=== PATIENT | female | born 1985 | race Caucasian/White ===

== ENCOUNTER 2019-02-05 13:59 | Emergency (ER) | payer MEDICAID ==
--- NOTE | 2019-02-05 14:15 | EDM.PDOC ---
ED HPI GENERAL MEDICAL PROBLEM - General Chief Complaint: General Stated Complaint: SINUS CONGETSION Time Seen by Provider: 02/05/19 14:07 Source of Information: Reports: Patient History Limitations: Reports: No Limitations - History of Present Illness INITIAL COMMENTS - FREE TEXT/NARRATIVE: HISTORY AND PHYSICAL: History of present illness: Patient is a 33-year-old female who presents to the emergency room today with complaints of sinus pressure and sore throat over the past few days. States symptoms have progressively gotten worse. Patient denies any fever, chills, headache, change in vision, syncope or near syncope. Denies any chest pain, back pain, shortness of breath or cough. Denies any abdominal pain, nausea, vomiting, diarrhea, constipation or dysuria. Has not noted any blood in urine or stool. Patient has been eating and drinking appropriately. Patient is currently 30 weeks - offers no OB related complaints. Has her next OB appointment next week. Review of systems: As per history of present illness and below otherwise all systems reviewed and negative. Past medical history: As per history of present illness and as reviewed below otherwise noncontributory. Surgical history: As per history of present illness and as reviewed below otherwise noncontributory. Social history: See social history for further information Family history: As per history of present illness and as reviewed below otherwise noncontributory. Physical exam: General: Well developed and well nourished 33 year old. Alert and oriented. Nontoxic appearing and in no acute distress. HEENT: Atraumatic, normocephalic, pupils equal and reactive bilaterally, negative for conjunctival pallor or scleral icterus, mucous membranes moist, TMs normal bilaterally, bilateral frontal and maxillary sinus tenderness with palpation throat clear, neck supple, nontender, trachea midline. No drooling or trismus noted. No meningeal signs. No hot potato voice noted. Lungs: Clear to auscultation, breath sounds equal bilaterally, chest nontender. Heart: S1S2, regular rate and rhythm without overt murmur Abdomen: Soft, nondistended, nontender. Negative for masses or hepatosplenomegaly. Negative for costovertebral tenderness. Pelvis: Stable nontender. Skin: Intact, warm, dry. No lesions or rashes noted. Extremities: Atraumatic, moves all extremities per self without difficulty or deficits, negative for cords or calf pain. Neurovascular unremarkable. Neuro: Awake, alert, oriented. Cranial nerves II through XII unremarkable. Cerebellum unremarkable. Motor and sensory unremarkable throughout. Exam nonfocal. Notes: Negative strep and influenza screening. Patient is tender with palpation of her maxillary sinus, we'll treat with Keflex. Encouraged her to contact her [employer]ER, she does have an appointment next week. Supportive care measures were reviewed and discussed. Voices understanding and is agreeable to plan of care. Denies any further questions or concerns at this time. Diagnostics: Strep, Influenza Therapeutics: None Prescription: Keflex Impression: Pharyngitis Plan: 1. Please use Tylenol needed for pain and fever management. 2. Get plenty of Rest. Encourage fluids to prevent dehydration. 3. Please follow up with your OBGYN. Return to the ED as needed as discussed. Definitive disposition and diagnosis as appropriate pending reevaluation and review of above. - Related Data Allergies Allergy/AdvReac Type Severity Reaction Status Date / Time shrimp Allergy Severe Itching Verified 02/05/19 14:10 azithromycin Allergy Nausea Verified 02/05/19 14:10 Home Meds: Home Meds cephALEXin [Keflex] 500 mg PO BID 7 Days #14 cap 02/05/19 [Rx] ED ROS GENERAL - Review of Systems Review Of Systems: ROS reveals no pertinent complaints other than HPI. ED EXAM, GENERAL - Physical Exam Exam: See Below (See dictation) Course - Vital Signs Last Recorded V/S: Last Vital Signs Temp 98.9 F 02/05/19 14:10 Pulse 107 H 02/05/19 14:10 Resp 18 02/05/19 14:10 BP 133/73 02/05/19 14:10 Pulse Ox 97 02/05/19 14:10 - Orders/Labs/Meds Orders: Active Orders 24 hr Category Date Time Status CULTURE STREP A CONFIRMATION [RM] Stat Lab 02/05/19 14:13 Results STREP SCRN A RAPID W CULT CONF [RM] Stat Lab 02/05/19 14:13 Results Departure - Departure Time of Disposition: 14:43 Disposition: Home, Self-Care 01 Clinical Impression: Pharyngitis Qualifiers: Pharyngitis/tonsillitis etiology: unspecified etiology Qualified Code(s): J02.9 - Acute pharyngitis, unspecified Sinusitis Qualifiers: Sinusitis location: maxillary Chronicity: acute Recurrence: non-recurrent Qualified Code(s): J01.00 - Acute maxillary sinusitis, unspecified - Discharge Information Prescriptions: cephALEXin [Keflex] 500 mg PO BID 7 Days #14 cap Instructions: Sinusitis, Adult, [id number] Referrals: Jaz Nicole MD [Primary Care Provider] - Forms: ED Department Discharge Additional Instructions: The following information is given to patients seen in the emergency department who are being discharged to home. This information is to outline your options for follow-up care. We provide all patients seen in our emergency department with a follow-up referral. The need for follow-up, as well as the timing and circumstances, are variable depending upon the specifics of your emergency department visit. If you don't have a primary care physician on staff, we will provide you with a referral. We always advise you to contact your personal physician following an emergency department visit to inform them of the circumstance of the visit and for follow-up with them and/or the need for any referrals to a consulting specialist. The emergency department will also refer you to a specialist when appropriate. This referral assures that you have the opportunity for follow-up care with a specialist. All of these measure are taken in an effort to provide you with optimal care, which includes your follow-up. Under all circumstances we always encourage you to contact your private physician who remains a resource for coordinating your care. When calling for follow-up care, please make the office aware that this follow-up is from your recent emergency room visit. If for any reason you are refused follow-up, please contact the [facility] Emergency Department at and asked to speak to the emergency department charge nurse. [facility] [address] [place] [id number] [id number] 1. Please use Tylenol and throat lozengers needed for pain and fever management. 2. Get plenty of Rest. Encourage fluids to prevent dehydration. 3. Please follow up with your OBGYN. Return to the ED as needed as discussed. - My Orders Last 24 Hours: My Active Orders 02/05/19 14:13 CULTURE STREP A CONFIRMATION [RM] Stat STREP SCRN A RAPID W CULT CONF [RM] Stat - Assessment/Plan Last 24 Hours: My Active Orders 02/05/19 14:13 CULTURE STREP A CONFIRMATION [RM] Stat STREP SCRN A RAPID W CULT CONF [RM] Stat
== END 2019-02-05 15:07 | disposition home or self-care (01) ==
LOC: MW.ED 13:59
DX: O99.513 Diseases of the respiratory system complicating pregnancy, third trimester (principal); J02.9 Acute pharyngitis, unspecified; J01.00 Acute maxillary sinusitis, unspecified; Z3A.30 30 weeks gestation of pregnancy; Z88.1 Allergy status to other antibiotic agents; Z91.013 Allergy to seafood
CPT/HCPCS: 87081; 87804; 87880-QW; 99283

== ENCOUNTER 2019-03-23 12:36 | Inpatient (IN) | payer MEDICAID ==
[2019-03-23] MEDS ORDERED: Sodium Chloride 0.9% 2.5 ML Syringe FLUSH PRN (15:11)
[2019-03-23] MEDS ORDERED: Lidocaine 1% 50 ML MDV INJECT PRN (15:11)
[2019-03-23] MEDS ORDERED: Methylergonovine 0.2 MG/1 ML Amp IM PRN ×2 (15:11→22:13)
[2019-03-23] MEDS ORDERED: Butorphanol 1 MG/ML SDV IVPUSH PRN (15:11)
[2019-03-23] MEDS ORDERED: Nalbuphine 10 MG/1 ML Vial IVPUSH PRN (15:11)
[2019-03-23] MEDS ORDERED: Misoprostol 200 MCG Tab PO PRN (15:11)
[2019-03-23] MEDS ORDERED: Terbutaline 1 MG/ML SDV SUBCUT PRN (15:11)
[2019-03-23] MEDS ORDERED: Sodium Chloride 0.9% 10 ML SDV IV PRN (15:11)
[2019-03-23] MEDS ORDERED: Sodium Chloride 0.9% 10 ML Syringe FLUSH PRN (15:11)
[2019-03-23] MEDS ORDERED: Tranexamic Acid 1,000 MG in Sodium Chloride 0.9% 100 ML IV PRN (15:11)
[2019-03-23] MEDS ORDERED: Water For Irrigation,Sterile 1,000 ML Container IRR PRN (15:11)
[2019-03-23] MEDS ORDERED: Carboprost Tromethamine 250 MCG/1 ML Amp IM PRN (15:11)
[2019-03-23] MEDS ORDERED: Oxytocin/0.9 % Sodium Chloride 30 UNIT/500 ML BAG IV SCH ×2 (15:15)
[2019-03-23] MEDS: Lactated Ringers 1,000 ML IV SCH ×2 (18:13→22:14)
[2019-03-23] MEDS ORDERED: Ropivacaine HCl/PF 100 ML ONE (21:17)
[2019-03-23] MEDS ORDERED: fentaNYL 100 MCG/2 ML SDV ONE (21:17)
--- NOTE | 2019-03-23 21:40 | PCM.PREANE ---
Preanesthetic Assessment - Anesthesia/Transfusion/Family Hx Anesthesia History: Prior Anesthesia Without Reaction Family History of Anesthesia Reaction: No Transfusion History: No Prior Transfusion(s) - Physical Assessment NPO Status Date: 03/23/19 NPO Status Time: 18:00 Height: 1.65 m Weight: 104.78 kg ASA Class: 1 - Lab Values: Laboratory Last Values WBC 14.24 K/uL (4.0-11.0) H 03/23/19 15:27 RBC 4.10 M/uL (4.30-5.90) L 03/23/19 15:27 Hgb 12.7 g/dL (12.0-16.0) 03/23/19 15:27 Hct 37.5 % (36.0-46.0) 03/23/19 15:27 MCV 91.5 fL (80.0-98.0) 03/23/19 15:27 MCH 31.0 pg (27.0-32.0) 03/23/19 15:27 MCHC 33.9 g/dL (31.0-37.0) 03/23/19 15:27 RDW Std Deviation 45.4 fl (28.0-62.0) 03/23/19 15:27 RDW Coeff of Tank 14 % (11.0-15.0) 03/23/19 15:27 Plt Count 177 K/uL (150-400) 03/23/19 15:27 MPV 12.60 fL (7.40-12.00) H 03/23/19 15:27 Nucleated RBC % 0.0 /100WBC 03/23/19 15:27 Nucleated RBCs # 0 K/uL 03/23/19 15:27 Membrane Rupture POSITIVE 03/23/19 13:15 Blood Type A POSITIVE 03/23/19 15:27 Antibody Screen NEGATIVE 03/23/19 15:27 - Allergies Allergies/Adverse Reactions: Allergies Allergy/AdvReac Type Severity Reaction Status Date / Time shrimp Allergy Severe Itching Verified 02/05/19 14:10 azithromycin Allergy Nausea Verified 02/05/19 14:10 - Acknowledgements Anesthesia Type Planned: Epidural Pt an Appropriate Candidate for the Planned Anesthesia: Yes Alternatives and Risks of Anesthesia Discussed w Pt/Guardian: Yes Pt/Guardian Understands and Agrees with Anesthesia Plan: Yes PreAnesthesia Questionnaire HEENT History: Reports: None Cardiovascular History: Reports: None Respiratory History: Reports: None Gastrointestinal History: Reports: None Genitourinary History: Reports: None [employer]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: Musculoskeletal History: Reports: None Neurological History: Reports: None Psychiatric History: Reports: None Endocrine/Metabolic History: Reports: None Hematologic History: Reports: None Immunologic History: Reports: None Oncologic (Cancer) History: Reports: None Dermatologic History: Reports: None - Infectious Disease History Infectious Disease History: Reports: None - Past Surgical History Head Surgeries/Procedures: Reports: None HEENT Surgical History: Reports: None Cardiovascular Surgical History: Reports: None Respiratory Surgical History: Reports: None GI Surgical History: Reports: None Female Surgical History: Reports: LEEP, Other (See Below) Other Female Surgeries/Procedures: LEEP 2014 Endocrine Surgical History: Reports: None Neurological Surgical History: Reports: None Musculoskeletal Surgical History: Reports: None Oncologic Surgical History: Reports: None Dermatological Surgical History: Reports: None - SUBSTANCE USE Smoking Status *Q: Current Every Day Smoker Tobacco Use Within Last Twelve Months: Cigarettes Recreational Drug Use History: Yes - HOME MEDS Home Medications: Home Meds cephALEXin [Keflex] 500 mg PO BID 7 Days #14 cap 02/05/19 [Rx] Acetaminophen [Tylenol] 1 tab PO ASDIRECTED PRN 03/23/19 [History] Calcium Carbonate [Tums] 1 tab PO ASDIRECTED PRN 03/23/19 [History] Cetirizine [ZyrTEC] 10 mg PO DAILY 03/23/19 [History] Cimetidine [Tagamet Hb] 200 mg PO ASDIRECTED PRN 03/23/19 [History] Pnv No.95/Ferrous Fum/Folic AC [ Vitamin Tablet] 1 tab PO DAILY [History] - CURRENT (IN HOUSE) MEDS Current Meds: Current Medications Butorphanol Tartrate (Stadol) 1 mg IVPUSH Q1H PRN PRN Reason: Pain Carboprost Tromethamine (Hemabate Ds) 250 mcg IM ASDIRECTED PRN PRN Reason: Post Hemorrhage Lactated Ringer's (Ringers, Lactated) 1,000 mls @ 150 mls/hr IV ASDIRECTED JON Last Admin: 03/23/19 18:13 Dose: 150 mls/hr Oxytocin/Sodium Chloride (Oxytocin 30 Unit/500 Ml-Ns) 30 unit in 500 mls @ 999 mls/hr IV TITRATE JON Oxytocin/Sodium Chloride (Oxytocin 30 Unit/500 Ml-Ns) 30 unit in 500 mls @ 2 mls/hr IV TITRATE JON; Protocol Last Titration: 03/23/19 20:05 Dose: 8 munits/min, 8 mls/hr Tranexamic Acid 1,000 mg/ (Sodium Chloride) 110 mls @ 660 mls/hr IV ONETIME PRN PRN Reason: Bleeding Lidocaine HCl (Xylocaine 1%) 50 ml INJECT ONETIME PRN PRN Reason: Laceration repair Methylergonovine Maleate (Methergine) 0.2 mg IM ASDIRECTED PRN PRN Reason: Post Hemorrhage Misoprostol (Cytotec) 200 mcg PO ONETIME PRN PRN Reason: Post Hemorrhage Nalbuphine HCl (Nubain) 10 mg IVPUSH Q1H PRN PRN Reason: Pain (severe 7-10) Sodium Chloride (Saline Flush) 10 ml FLUSH ASDIRECTED PRN PRN Reason: Keep Vein Open Sodium Chloride (Saline Flush) 2.5 ml FLUSH ASDIRECTED PRN PRN Reason: Keep Vein Open Sodium Chloride (Normal Saline) 10 ml IV ASDIRECTED PRN PRN Reason: IV Use Sterile Water (Sterile Water For Irrigation) 1,000 ml IRR ASDIRECTED PRN PRN Reason: delivery Terbutaline Sulfate (Brethine) 0.25 mg SUBCUT ASDIRECTED PRN PRN Reason: Tacysystole Discontinued Medications Fentanyl (Sublimaze) Confirm Administered Dose 100 mcg .ROUTE .STK-MED ONE Stop: 03/23/19 21:18 Ropivacaine (Naropin 0.2%) Confirm Administered Dose 100 mls @ as directed .ROUTE .STK-MED ONE Stop: 03/23/19 21:18
--- NOTE | 2019-03-23 21:42 | PCM.PRNOTE ---
- Free Text/Narrative Note: Anes Note Patient requests epidural for L&D> Sitting position, level L3-L4 midline approach. Sterile technique. Chloraprep scrub to lumbar area. Sterile fenestrated drape applied. Epidural space easily achieved using CAREY technique. CAREY ar 4 cm. Cath threaded 5 cm with ease. Cath secured at 10 cm at skin using sterile clear adhesive dressing. 2124 test 3 cc 1.5% lido with epi negative. 2127 load 10 cc 0.2% ropiviciane with 1 mcg cc fentanyl in slow divided doses. 2132 Pump started with 90 cc same solution at 8 cc hr with 6 cc q 20 min prn bolus. Charanjit well. Time with patient 2104 2139. Juventino Chavez LABOR LAW PROFESSOR
--- NOTE | 2019-03-23 22:11 | PCM.DEL ---
L & D Note - General Info Date of Service: 03/23/19 Mother's Due Date: 04/11/19 - Delivery Note Labor: Induced by Oxytocin (after PROM) Delivery Outcome: Livebirth Infant Delivery Method: Spontaneous Vaginal Delivery-Single Presentation: Right Occiput Anterior (RICHARD) Nuchal Cord: None Prep: Other Anesthesia Type: Epidural Amniotic Fluid Description: Clear Episiotomy Type: None Laceration: None Placenta: Intact, Spontaneous Cord: 3 Vessels Estimated Blood Loss: 200 Resuscitation Needed: No : Suctioned Score 1 min: 9 Score 5 min: 10 Delivery Comments (Free Text/Narrative):: Liveborn female 9/10 weight 3010 grams. - General Info Date of Service: 03/23/19 - Patient Data Weight - Most Recent: 104.78 kg Lab Results Last 24 Hours: Laboratory Results - last 24 hr 03/23/19 03/23/19 03/23/19 Range/Units 13:15 15:27 15:27 WBC 14.24 H (4.0-11.0) K/uL RBC 4.10 L (4.30-5.90) M/uL Hgb 12.7 (12.0-16.0) g/dL Hct 37.5 (36.0-46.0) % MCV 91.5 (80.0-98.0) fL MCH 31.0 (27.0-32.0) pg MCHC 33.9 (31.0-37.0) g/dL RDW Std Deviation 45.4 (28.0-62.0) fl RDW Coeff of Tank 14 (11.0-15.0) % Plt Count 177 (150-400) K/uL MPV 12.60 H (7.40-12.00) fL Nucleated RBC % 0.0 /100WBC Nucleated RBCs # 0 K/uL Membrane Rupture POSITIVE Blood Type A POSITIVE Antibody Screen NEGATIVE Med Orders - Current: Current Medications Butorphanol Tartrate (Stadol) 1 mg IVPUSH Q1H PRN PRN Reason: Pain Carboprost Tromethamine (Hemabate Ds) 250 mcg IM ASDIRECTED PRN PRN Reason: Post Hemorrhage Lactated Ringer's (Ringers, Lactated) 1,000 mls @ 150 mls/hr IV ASDIRECTED JON Last Admin: 03/23/19 18:13 Dose: 150 mls/hr Oxytocin/Sodium Chloride (Oxytocin 30 Unit/500 Ml-Ns) 30 unit in 500 mls @ 999 mls/hr IV TITRATE JON Oxytocin/Sodium Chloride (Oxytocin 30 Unit/500 Ml-Ns) 30 unit in 500 mls @ 2 mls/hr IV TITRATE JON; Protocol Last Titration: 03/23/19 20:05 Dose: 8 munits/min, 8 mls/hr Tranexamic Acid 1,000 mg/ (Sodium Chloride) 110 mls @ 660 mls/hr IV ONETIME PRN PRN Reason: Bleeding Lidocaine HCl (Xylocaine 1%) 50 ml INJECT ONETIME PRN PRN Reason: Laceration repair Methylergonovine Maleate (Methergine) 0.2 mg IM ASDIRECTED PRN PRN Reason: Post Hemorrhage Misoprostol (Cytotec) 200 mcg PO ONETIME PRN PRN Reason: Post Hemorrhage Nalbuphine HCl (Nubain) 10 mg IVPUSH Q1H PRN PRN Reason: Pain (severe 7-10) Sodium Chloride (Saline Flush) 10 ml FLUSH ASDIRECTED PRN PRN Reason: Keep Vein Open Sodium Chloride (Saline Flush) 2.5 ml FLUSH ASDIRECTED PRN PRN Reason: Keep Vein Open Sodium Chloride (Normal Saline) 10 ml IV ASDIRECTED PRN PRN Reason: IV Use Sterile Water (Sterile Water For Irrigation) 1,000 ml IRR ASDIRECTED PRN PRN Reason: delivery Terbutaline Sulfate (Brethine) 0.25 mg SUBCUT ASDIRECTED PRN PRN Reason: Tacysystole Discontinued Medications Fentanyl (Sublimaze) Confirm Administered Dose 100 mcg .ROUTE .STK-MED ONE Stop: 03/23/19 21:18 Ropivacaine (Naropin 0.2%) Confirm Administered Dose 100 mls @ as directed .ROUTE .STK-MED ONE Stop: 03/23/19 21:18 - Problem List & Annotations (1) PROM with onset of labor within 24 hours, delivered, curr hospitaliz SNOMED Code(s): 134316545, 916632213 Code(s): O42.00 - VU ROM, ONSET LABOR W/N 24 HR OF RUPT, UNSP WEEKS OF GEST Status: Acute Current Visit: Yes - Problem List Review Problem List Initiated/Reviewed/Updated: Yes - My Orders Last 24 Hours: My Active Orders 03/23/19 13:06 Non Stress Test [RC] PER UNIT ROUTINE Up ad Natali [RC] ASDIRECTED Vaginal Exam [RC] Click to Edit Vital Signs [RC] PER UNIT ROUTINE 03/23/19 15:11 Patient Status [ADT] Routine Bedrest Bathroom Privileges [RC] ASDIRECTED Communication Order [RC] ASDIRECTED Communication Order [RC] ASDIRECTED May Shower [RC] ASDIRECTED Notify Provider [RC] PRN Notify Provider [RC] PRN Oxygen Therapy [RC] ASDIRECTED Up ad Natali [RC] ASDIRECTED Vital Signs [RC] PER UNIT ROUTINE Vital Signs [RC] PER UNIT ROUTINE Butorphanol [Stadol] 1 mg IVPUSH Q1H PRN Carboprost Tromethamine [Hemabate DS] 250 mcg IM ASDIRECTED PRN Lidocaine 1% [Xylocaine 1%] 50 ml INJECT ONETIME PRN Methylergonovine [Methergine] 0.2 mg IM ASDIRECTED PRN Nalbuphine [Nubain] 10 mg IVPUSH Q1H PRN Sodium Chloride 0.9% [Normal Saline] 10 ml IV ASDIRECTED PRN Sodium Chloride 0.9% [Saline Flush] 10 ml FLUSH ASDIRECTED PRN Sodium Chloride 0.9% [Saline Flush] 2.5 ml FLUSH ASDIRECTED PRN Terbutaline [Brethine] 0.25 mg SUBCUT ASDIRECTED PRN Tranexamic Acid [Cyklokapron] 1,000 mg Sodium Chloride 0.9% [Normal Saline] 100 ml IV ONETIME Water For Irrigation,Sterile [Sterile Water for Irrigation] 1,000 ml IRR ASDIRECTED PRN miSOPROStoL [Cytotec] 200 mcg PO ONETIME PRN Scalp Electrode [WOMSER] Per Unit Routine Peripheral IV Insertion Adult [OM.PC] Routine Resuscitation Status Routine 03/23/19 15:15 Lactated Ringers [Ringers, Lactated] 1,000 ml IV ASDIRECTED Oxytocin/0.9 % Sodium Chloride [Oxytocin 30 Unit/500 ML-NS] 30 unit in 500 ml IV TITRATE Oxytocin/0.9 % Sodium Chloride [Oxytocin 30 Unit/500 ML-NS] 30 unit in 500 ml IV TITRATE 03/23/19 15:27 RAPID PLASMA REAGIN, QUANT [REF] Routine 03/23/19 Dinner Clear Liquid Diet [DIET]
[2019-03-23] MEDS ORDERED: Acetaminophen 500 MG Tab PO PRN ×2 (22:13)
[2019-03-23] MEDS ORDERED: Witch Hazel Medicated Pads 40/Jar TOP PRN (22:13)
[2019-03-23] MEDS ORDERED: Benzocaine/Menthol 20%-0.5% Spray 78 GM Cannister TOP PRN (22:13)
[2019-03-23] MEDS ORDERED: oxyCODONE 5 MG Tab PO PRN (22:13)
[2019-03-23] MEDS ORDERED: Ibuprofen 800 MG Tab PO PRN (22:13)
[2019-03-23] MEDS ORDERED: Lanolin 100% Cream 7 GM Tube TOP PRN (22:13)
[2019-03-23] MEDS ORDERED: Ibuprofen 400 MG Tab PO PRN (22:13)
[2019-03-23] MEDS ORDERED: Bisacodyl 10 MG Supp RECTAL PRN (22:13)
[2019-03-23] MEDS ORDERED: Docusate Sodium 100 MG Cap PO PRN (22:13)
--- NOTE | 2019-03-23 22:48 | OR ---
SURGEON: Queta Blakely M.D. DATE OF PROCEDURE: 03/23/2019 PREOPERATIVE DIAGNOSES: 1. A 37-2/7 week intrauterine . 2. Premature rupture of membranes. POSTOPERATIVE DIAGNOSES: 1. A 37-2/7 week intrauterine . 2. Premature rupture of membranes. PROCEDURE: 1. Pitocin induction of labor. 2. Term spontaneous vaginal delivery. PRIMARY SURGEON: Queta Blakely M.D. ANESTHESIA: Epidural. ESTIMATED BLOOD LOSS: Less than 200 mL. FINDINGS: Live born female, score 9 and 10, weighing 3010 g. Placenta spontaneous. Schultze intact with 3 vessels. Perineum intact. COMPLICATIONS: None known. DISPOSITION: Mother and baby are in LDR in good condition. BRIEF HISTORY: This is a 33-year-old female. She is G5, P 3-0-1-3. She presents at 37-2/7 weeks' gestation with spontaneous rupture of membranes, initially 3 cm, 80%. She was not having any contractions. She is known to be group B strep negative. She had category 1 heart tones. She was started on Pitocin. She did progress into active labor. When she was 4 cm dilated, she received an epidural for pain control. During the epidural, she progressed to complete. DESCRIPTION OF PROCEDURE: With the patient in dorsal lithotomy position, the patient pushed over 2 contractions to a 5+ station, at which time the head was delivered spontaneously and atraumatically over the perineum with support with subsequent delivery of the infant's shoulders and body without any difficulty. The was bulb suctioned by nose and mouth, and after the cord ceased to pulsate, it was doubly clamped and cut. The infant was a liveborn female, score 9 and 10, weighing 3010 g. Cord blood was collected for cord ABGs as well as routine cord blood sampling. Pitocin was initiated after delivery of the infant to assist with delivery of the placenta, which was delivered spontaneously. Schultze intact with 3 vessels. Upon inspection of the pelvis and perineum, there were no periurethral, vaginal sidewall, cervical, rectal, or perineal lacerations. EBL was less than 200 mL. There were no known complications. Mother and baby remained in LDR in good condition. JAI / LOUISE /[id number]
--- NOTE | 2019-03-24 06:58 | PCM.PNPP ---
- General Info Date of Service: 03/24/19 Functional Status: Reports: Pain Controlled, Tolerating Diet, Ambulating, Urinating - Review of Systems General: Reports: No Symptoms HEENT: Reports: No Symptoms Pulmonary: Reports: No Symptoms Cardiovascular: Reports: No Symptoms Gastrointestinal: Reports: No Symptoms Genitourinary: Reports: No Symptoms Musculoskeletal: Reports: No Symptoms Skin: Reports: No Symptoms Neurological: Reports: No Symptoms Psychiatric: Reports: No Symptoms - General Info Date of Service: 03/24/19 - Patient Data Vital Signs - Most Recent: Last Vital Signs Temp 36.6 C 03/24/19 04:22 Pulse 65 03/24/19 04:22 Resp 16 03/24/19 04:22 BP 129/69 03/24/19 04:22 Pulse Ox 96 03/24/19 04:22 Weight - Most Recent: 104.78 kg Lab Results - Last 24 Hours: Laboratory Results - last 24 hr 03/23/19 03/23/19 03/23/19 Range/Units 13:15 15:27 15:27 WBC 14.24 H (4.0-11.0) K/uL RBC 4.10 L (4.30-5.90) M/uL Hgb 12.7 (12.0-16.0) g/dL Hct 37.5 (36.0-46.0) % MCV 91.5 (80.0-98.0) fL MCH 31.0 (27.0-32.0) pg MCHC 33.9 (31.0-37.0) g/dL RDW Std Deviation 45.4 (28.0-62.0) fl RDW Coeff of Tank 14 (11.0-15.0) % Plt Count 177 (150-400) K/uL MPV 12.60 H (7.40-12.00) fL Nucleated RBC % 0.0 /100WBC Nucleated RBCs # 0 K/uL Cord ABG pH (7.18-7.38) Cord ABG Base Excess (-10--2) Cord VBG pH (7.25-7.45) Cord VBG Base Excess (-10--2) Membrane Rupture POSITIVE Blood Type A POSITIVE Antibody Screen NEGATIVE 03/23/19 03/24/19 Range/Units 21:44 05:55 WBC (4.0-11.0) K/uL RBC (4.30-5.90) M/uL Hgb 11.6 L (12.0-16.0) g/dL Hct 34.4 L (36.0-46.0) % MCV (80.0-98.0) fL MCH (27.0-32.0) pg MCHC (31.0-37.0) g/dL RDW Std Deviation (28.0-62.0) fl RDW Coeff of Tank (11.0-15.0) % Plt Count (150-400) K/uL MPV (7.40-12.00) fL Nucleated RBC % /100WBC Nucleated RBCs # K/uL Cord ABG pH 7.294 (7.18-7.38) Cord ABG Base Excess -4 (-10--2) Cord VBG pH 7.388 (7.25-7.45) Cord VBG Base Excess -3 (-10--2) Membrane Rupture Blood Type Antibody Screen Med Orders - Current: Current Medications Acetaminophen (Tylenol Extra Strength) 500 mg PO Q4H PRN PRN Reason: Pain Acetaminophen (Tylenol Extra Strength) 1,000 mg PO Q4H PRN PRN Reason: Pain Benzocaine/Menthol (Dermoplast Pain Relief 20%-0.5% [place]) 78 gm TOP ASDIRECTED PRN PRN Reason: Perineal Comfort Measure Bisacodyl (Dulcolax) 10 mg RECTAL ONETIME PRN PRN Reason: Constipation Docusate Sodium (Colace) 100 mg PO BID PRN PRN Reason: Constipation Emollient Ointment (Lansinoh Hpa) 0 gm TOP ASDIRECTED PRN PRN Reason: Sore Nipples Ibuprofen (Motrin) 400 mg PO Q4H PRN PRN Reason: Pain Ibuprofen (Motrin) 800 mg PO Q6H PRN PRN Reason: Pain Methylergonovine Maleate (Methergine) 0.2 mg IM ONETIME PRN PRN Reason: Excessive Vaginal Bleeding Oxycodone HCl (Oxycodone) 5 mg PO Q2H PRN PRN Reason: Pain Witch Brianna (Tucks) 1 pad TOP ASDIRECTED PRN PRN Reason: comfort care Discontinued Medications Butorphanol Tartrate (Stadol) 1 mg IVPUSH Q1H PRN PRN Reason: Pain Carboprost Tromethamine (Hemabate Ds) 250 mcg IM ASDIRECTED PRN PRN Reason: Post Hemorrhage Fentanyl (Sublimaze) Confirm Administered Dose 100 mcg .ROUTE .[facility] ONE Stop: 03/23/19 21:18 Lactated Ringer's (Ringers, Lactated) 1,000 mls @ 150 mls/hr IV ASDIRECTED JON Last Admin: 03/23/19 22:14 Dose: 150 mls/hr Oxytocin/Sodium Chloride (Oxytocin 30 Unit/500 Ml-Ns) 30 unit in 500 mls @ 999 mls/hr IV TITRATE JON Oxytocin/Sodium Chloride (Oxytocin 30 Unit/500 Ml-Ns) 30 unit in 500 mls @ 2 mls/hr IV TITRATE JON; Protocol Last Titration: 03/23/19 22:15 Dose: 999 munits/min, 999 mls/hr Tranexamic Acid 1,000 mg/ (Sodium Chloride) 110 mls @ 660 mls/hr IV ONETIME PRN PRN Reason: Bleeding Ropivacaine (Naropin 0.2%) Confirm Administered Dose 100 mls @ as directed .ROUTE .[employer] ONE Stop: 03/23/19 21:18 Lidocaine HCl (Xylocaine 1%) 50 ml INJECT ONETIME PRN PRN Reason: Laceration repair Methylergonovine Maleate (Methergine) 0.2 mg IM ASDIRECTED PRN PRN Reason: Post Hemorrhage Misoprostol (Cytotec) 200 mcg PO ONETIME PRN PRN Reason: Post Hemorrhage Nalbuphine HCl (Nubain) 10 mg IVPUSH Q1H PRN PRN Reason: Pain (severe 7-10) Sodium Chloride (Saline Flush) 10 ml FLUSH ASDIRECTED PRN PRN Reason: Keep Vein Open Sodium Chloride (Saline Flush) 2.5 ml FLUSH ASDIRECTED PRN PRN Reason: Keep Vein Open Sodium Chloride (Normal Saline) 10 ml IV ASDIRECTED PRN PRN Reason: IV Use Sterile Water (Sterile Water For Irrigation) 1,000 ml IRR ASDIRECTED PRN PRN Reason: delivery Last Admin: 03/23/19 22:15 Dose: 1,000 ml Terbutaline Sulfate (Brethine) 0.25 mg SUBCUT ASDIRECTED PRN PRN Reason: Tacysystole - Interaction Infant Disposition, : in Room with Family Interaction: Holding Infant Feeding: Breastfed Infant; Nursed Well Support Person: , Other (see below) - Recovery Exam Fundal Tone: Firm Fundal Level: 1 Fingerbreadths Below Umbilicus Fundal Placement: Midline Lochia Amount: Small Lochia Color: Rubra/Red Perineum Description: Intact, Minimal Bruising/Swelling Episiotomy/Laceration: None Bladder Status: Voiding Urinary Elimination: Voided - Exam General: Alert, Oriented HEENT: Pupils Equal Neck: Supple Lungs: Normal Respiratory Effort GI/Abdominal Exam: Soft, Non-Tender, No Distention Extremities: Normal Inspection, Non-Tender. No: No Pedal Edema (trace) Skin: Warm, Dry, Intact Neurological: No New Focal Deficit Psy/Mental Status: Alert, Normal Affect, Normal Mood - Problem List & Annotations (1) PROM with onset of labor within 24 hours, delivered, curr hospitaliz SNOMED Code(s): 223300708, 713927091 Code(s): O42.00 - VU ROM, ONSET LABOR W/N 24 HR OF RUPT, UNSP WEEKS OF GEST Status: Acute Current Visit: Yes - Problem List Review Problem List Initiated/Reviewed/Updated: Yes - My Orders Last 24 Hours: My Active Orders 03/23/19 13:06 Non Stress Test [RC] PER UNIT ROUTINE Up ad Natali [RC] ASDIRECTED Vaginal Exam [RC] Click to Edit Vital Signs [RC] PER UNIT ROUTINE 03/23/19 15:11 Oxygen Therapy [RC] ASDIRECTED Vital Signs [RC] PER UNIT ROUTINE Vital Signs [RC] PER UNIT ROUTINE 03/23/19 15:27 RAPID PLASMA REAGIN, QUANT [REF] Routine 03/23/19 22:13 Patient Status [ADT] Routine May Shower [RC] ASDIRECTED Up ad Natali [RC] ASDIRECTED Vital Signs [RC] PER UNIT ROUTINE Acetaminophen [Tylenol Extra Strength] 1,000 mg PO Q4H PRN Acetaminophen [Tylenol Extra Strength] 500 mg PO Q4H PRN Benzocaine/Menthol [Dermoplast Pain Relief 20%-0.5% [place]] 78 gm TOP ASDIRECTED PRN Docusate Sodium [Colace] 100 mg PO BID PRN Ibuprofen [Motrin] 400 mg PO Q4H PRN Ibuprofen [Motrin] 800 mg PO Q6H PRN Lanolin [Lansinoh HPA] See Dose Instructions TOP ASDIRECTED PRN Methylergonovine [Methergine] 0.2 mg IM ONETIME PRN Witch Brianna [Tucks] 1 pad TOP ASDIRECTED PRN bisacodyL [Dulcolax] 10 mg RECTAL ONETIME PRN oxyCODONE 5 mg PO Q2H PRN Assess Lochia [WOMSER] Per Unit Routine Assess Uterine Involution [WOMSER] Per Unit Routine Perineal Care [OM.PC] Per Unit Routine Peripheral IV Discontinue [OM.PC] Routine Resuscitation Status Routine 03/24/19 Breakfast Regular Diet [DIET] - Assessment Assessment:: PPD#1 after , late in evening. Considering discharge as her daughters cannot come onto the unit due to flu restrictions. She is stable and may go home after 24 hours if she would like. - Plan Plan:: Discharge instructions reviewed.
--- NOTE | 2019-03-24 09:53 | PCM48HPAN ---
Post Anesthesia Note - EVALUATION WITHIN 48HRS OF ANESTHETIC Vital Signs in Normal Range: Yes Patient Participated in Evaluation: Yes Respiratory Function Stable: Yes Airway Patent: Yes Cardiovascular Function Stable: Yes Hydration Status Stable: Yes Pain Control Satisfactory: Yes Nausea and Vomiting Control Satisfactory: Yes Mental Status Recovered: Yes Vital Signs: Last Vital Signs Temp 36.6 C 03/24/19 04:22 Pulse 65 03/24/19 04:22 Resp 16 03/24/19 04:22 BP 129/69 03/24/19 04:22 Pulse Ox 96 03/24/19 04:22
== END 2019-03-24 14:25 | disposition home or self-care (01) | DRG 807 ==
LOC: MW.OBCHECK 12:36 → MW.OB 12:36 → MW.OBCHECK 21:43 → OBSVTOIN 22:13 → MW.OB 03-24 00:28
PROVIDERS: ADMIT Obstetrics & Gynecology; ATTEND Obstetrics & Gynecology
PROC: 10E0XZZ Delivery of Products of Conception, External Approach (ICD-10-PCS; principal; 2019-03-23)
PROC: 3E033VJ Introduction of Other Hormone into Peripheral Vein, Percutaneous Approach (ICD-10-PCS; 2019-03-23)
DX: O42.02 Full-term premature rupture of membranes, onset of labor within 24 hours of rupture (principal); Z37.0 Single live birth; O99.334 Smoking (tobacco) complicating childbirth; F17.210 Nicotine dependence, cigarettes, uncomplicated; Z3A.37 37 weeks gestation of pregnancy; Z91.013 Allergy to seafood; Z88.1 Allergy status to other antibiotic agents
CPT/HCPCS: 36415; 59025; 59409; 82803; 84112; 85014; 85018; 85027; 86593; 86850; 86900; 86901; A9270-GY; J2590; J2795; J3010; J7120